=== PATIENT | female | born 1955 | race Caucasian/White ===

== ENCOUNTER 2017-09-08 22:57 | Emergency (ER) | payer MEDICAID ==
[~2017-09-08] VITALS: Ht 157.5 cm; Wt 63.5 kg
[2017-09-08 23:10] VITALS: BP_SYST 121
[2017-09-08 23:38] LABS: BILIRUBIN,URINE NEGATIVE (NEGATIVE); BLOOD, URINE NEGATIVE (NEGATIVE); CLARITY/URINE SL CLOUDY (CLEAR); COLOR,URINE YELLOW (YELLOW); GLUCOSE,URINE NEGATIVE (NEGATIVE); KETONES,URINE NEGATIVE (NEGATIVE); LEUKOCYTE ESTERASE ,URINE 2+ (NEGATIVE); NITRITE, URINE NEGATIVE (NEGATIVE); PROTEIN URINE NEGATIVE (NEGATIVE); UROBILINOGEN,URINE 0.2 (0.2-1.0)
[2017-09-08 23:47] LABS: BACTERIA,URINE MODERATE /HPF (None Seen); RBC,URINE 0-3 /HPF (0-3); WBC,URINE 20-50 /HPF (0-3)
[2017-09-09] MEDS ORDERED: KETOROLAC TROMETHAMINE 60 MG/2 ML VIAL IM ONE
[2017-09-09 00:45] VITALS: BP_SYST 131
== END 2017-09-09 00:45 | disposition home or self-care (01) ==
LOC: SED 22:57
DX: M54.40 Lumbago with sciatica, unspecified side (principal); N39.0 Urinary tract infection, site not specified; J44.9 Chronic obstructive pulmonary disease, unspecified; K21.9 Gastro-esophageal reflux disease without esophagitis
CPT/HCPCS: 81000; 87086; 96372; 99284; J1885

== ENCOUNTER 2023-04-08 19:29 | Emergency (ER) | payer MEDICAID, OTHER ==
[~2023-04-08] VITALS: Ht 152.4 cm; Wt 61.2 kg
[2023-04-08 19:33] VITALS: BP_SYST 140
--- NOTE | 2023-04-08 19:58 | NUR ---
Dr. Mendoza with patient in triage for MSE, accompanied by daughter.
--- NOTE | 2023-04-08 20:03 | NUR ---
PPatient to ER bed CH3 to gown for evaluation. Side rails up. Report given to FATEMEH RECIO.
--- NOTE | 2023-04-08 20:05 | NUR ---
ER at bedside examining patient.
[2023-04-08] MEDS ORDERED: KETOROLAC TROMETHAMINE 60 MG/2 ML VIAL IM ONE (20:15)
[2023-04-08] MEDS ORDERED: NAPR-1172 PO (21:08)
[2023-04-08 21:12] VITALS: BP_SYST 140
--- NOTE | 2023-04-08 21:13 | NUR ---
Patient given written and verbal discharge instructions and verbalizes understanding. ER MD discussed with patient the results and treatment provided. Patient in stable condition. ID arm band removed. Rx of NAPROXEN given. Patient educated on CERVICAL pain management and to follow up with PMD. Pain Scale . Opportunity for questions provided and answered. Medication side effect fact sheet provided.
== END 2023-04-08 21:12 | disposition home or self-care (01) ==
LOC: SED 19:29
DX: S13.4XXA Sprain of ligaments of cervical spine, initial encounter (principal); J44.9 Chronic obstructive pulmonary disease, unspecified; K21.9 Gastro-esophageal reflux disease without esophagitis; Z79.899 Other long term (current) drug therapy; X58.XXXA Exposure to other specified factors, initial encounter; Y93.89 Activity, other specified; Y92.89 Other specified places as the place of occurrence of the external cause; Y99.8 Other external cause status
CPT/HCPCS: 99283; 96372; J1885

== ENCOUNTER 2023-07-13 02:33 | Emergency (ER) | payer OTHER ==
[~2023-07-13] VITALS: Ht 165.1 cm; Wt 63.5 kg
[~2023-07-13 02:33] MED LIST: NAPR-1172 PO
[2023-07-13 03:26] VITALS: BP_SYST 143; PULSE 76; RESP 16; TEMP 98.1; O2SAT 98
[2023-07-13 05:23] LABS: BILIRUBIN,URINE NEGATIVE (NEGATIVE); BLOOD, URINE 2+ (NEGATIVE); CLARITY/URINE Clear (CLEAR); COLOR,URINE YELLOW (YELLOW); GLUCOSE,URINE NEGATIVE (NEGATIVE); KETONES,URINE NEGATIVE (NEGATIVE); LEUKOCYTE ESTERASE ,URINE 3+ (NEGATIVE); NITRITE, URINE POSITIVE (NEGATIVE); PH,URINE 6.5 (5.0-8.0); PROTEIN URINE 2+ (NEGATIVE); UROBILINOGEN,URINE 0.2 (0.2-1.0)
[2023-07-13 05:49] LABS: BACTERIA,URINE MODERATE /HPF (None Seen); RBC,URINE >100 /HPF (0-3); WBC,URINE >100 /HPF (0-3)
[2023-07-13] MEDS ORDERED: PHEN-727 PO (05:49)
[2023-07-13] MEDS ORDERED: IBUP-1969 PO (05:49)
[2023-07-13] MEDS ORDERED: CEPH250C PO (05:49)
[2023-07-13] MEDS ORDERED: IBUPROFEN 600 MG TABLET PO ONE (06:00)
[2023-07-13] MEDS ORDERED: cephALEXin 500 MG CAPSULE PO ONE (06:00)
[2023-07-13 06:08] VITALS: BP_SYST 123; PULSE 70; RESP 15; TEMP 98.2; O2SAT 99
== END 2023-07-13 06:00 | disposition home or self-care (01) ==
LOC: SED 02:33
DX: N39.0 Urinary tract infection, site not specified (principal); M54.50 Low back pain, unspecified; R10.30 Lower abdominal pain, unspecified; J44.9 Chronic obstructive pulmonary disease, unspecified; K21.9 Gastro-esophageal reflux disease without esophagitis; Z79.899 Other long term (current) drug therapy
CPT/HCPCS: 81000; 81003; 87086; 99283

== ENCOUNTER 2023-11-21 22:40 | Emergency (ER) | payer OTHER ==
[~2023-11-21] VITALS: Ht 157.5 cm; Wt 62.6 kg
[~2023-11-21 22:40] MED LIST changes: +CEPH250C PO; +IBUP-1969 PO; +PHEN-727 PO
[2023-11-21 23:41] VITALS: BP_SYST 136; PULSE 71; RESP 16; TEMP 97.9; O2SAT 99
[2023-11-21 23:51] LABS: BILIRUBIN,URINE NEGATIVE (NEGATIVE); CLARITY/URINE CLEAR (CLEAR); COLOR,URINE YELLOW (YELLOW); GLUCOSE,URINE NEGATIVE (NEGATIVE); KETONES,URINE NEGATIVE (NEGATIVE); LEUKOCYTE ESTERASE ,URINE 1+ (NEGATIVE); NITRITE, URINE NEGATIVE (NEGATIVE); PH,URINE 6.5 (5.0-8.0); PROTEIN URINE NEGATIVE (NEGATIVE); UROBILINOGEN,URINE 0.2 (0.2-1.0)
[2023-11-21 23:52] LABS: BLOOD, URINE TRACE (NEGATIVE)
[2023-11-22 00:22] LABS: BACTERIA,URINE RARE /HPF (None Seen)
[2023-11-22] MEDS ORDERED: PHEN-726 PO (01:14)
[2023-11-22] MEDS ORDERED: CEPH-548 PO (01:14)
[2023-11-22] MEDS ORDERED: PHENAZOPYRIDINE HCL 100 MG TABLET PO ONE (01:30)
[2023-11-22] MEDS ORDERED: IBUPROFEN 600 MG TABLET PO ONE (01:30)
[2023-11-22 01:33] VITALS: BP_SYST 131; PULSE 69; RESP 16; TEMP 97.9; O2SAT 100
== END 2023-11-22 01:33 | disposition home or self-care (01) ==
LOC: SED 22:40
DX: N39.0 Urinary tract infection, site not specified (principal); R30.0 Dysuria; R35.0 Frequency of micturition; R39.15 Urgency of urination; Z79.899 Other long term (current) drug therapy; J44.9 Chronic obstructive pulmonary disease, unspecified; K21.9 Gastro-esophageal reflux disease without esophagitis
CPT/HCPCS: 81000; 81001; 81015; 99284